=== PATIENT | female | born 1990 | race Two or more races ===

== ENCOUNTER 2019-09-09 10:10 | Emergency (ER) | payer MEDICAID, OTHER ==
[~2019-09-09] VITALS: Ht 160 cm; Wt 73.0 kg
[2019-09-09 10:56] VITALS: BP 118/67
[2019-09-09] MEDS ORDERED: PENICILLIN G BENZ 1200000 UNITS/2 ML SYRG IM ONE (11:15)
== END 2019-09-09 11:35 | disposition home or self-care (01) ==
LOC: ER 10:13
DX: O98.111 Syphilis complicating pregnancy, first trimester (principal); Z3A.28 28 weeks gestation of pregnancy
CPT/HCPCS: 96372; 99283; J0561